=== PATIENT | male | born 1995 | race Caucasian/White ===

== ENCOUNTER 2018-03-04 18:51 | Emergency (ER) | payer BC, OTHER ==
--- NOTE | 2018-03-04 19:38 | ED ---
Lower Extremity - HPI Summary HPI Summary: Complains of pain to left lateral foot down near fifth digit status post landing wrong after jumping today. Denies loss of sensation, ankle pain, knee pain, loss of function of the toes. Medical history is none. - History of Current Complaint Chief Complaint: EDExtremityLower Stated Complaint: LT FT INJURY Time Seen by Provider: 03/04/18 19:10 Hx Obtained From: Patient Mechanism Of Injury: Twisted Onset of Pain: Immediate Severity Initially: Moderate Severity Currently: Moderate Pain Intensity: 7 Pain Scale Used: 0-10 Numeric Timing: Constant Location: Is Discrete @ Character Of Pain: Sharp, Throbbing Aggravating Factor(s): Standing, Weight Bearing - Allergies/Home Medications Allergies/Adverse Reactions: Allergies Allergy/AdvReac Type Severity Reaction Status Date / Time No Known Allergies Allergy Verified 03/04/18 18:57 Home Medications: Home Medications Dextroamphetamine/Amphetamine [Adderall Xr 20 mg Capsule] 20 mg PO DAILY [History Confirmed 03/04/18] PMH/Surg Hx/FS Hx/Imm Hx Endocrine/Hematology History: Denies: Hx Diabetes Cardiovascular History: Denies: Hx Hypertension, Hx Pacemaker/ICD History: Denies: Hx Renal Disease Sensory History: Denies: Hx Hearing Aid Psychiatric History: Denies: Hx Panic Disorder - Surgical History Surgery Procedure, Year, and Place: RIGHT WRIST REPAIR WITH PIN 07/2015 Infectious Disease History: No Infectious Disease History: Denies: Traveled Outside the [place] in Last 30 Days Review of Systems Constitutional: Negative Eyes: Negative ENT: Negative Cardiovascular: Negative Respiratory: Negative Gastrointestinal: Negative Genitourinary: Negative Musculoskeletal: Negative Skin: Negative Neurological: Negative Psychological: Normal All Other Systems Reviewed And Are Negative: Yes Physical Exam - Summary Physical Exam Summary: No ecchymosis, swelling, deformity, erythema, or extra warmth to left foot or ankle, left knee. PMS intact in left foot. Tenderness to palpation along the lateral edge of left foot in the vicinity of the fifth digit. No deformity noted to toes Triage Information Reviewed: Yes Vital Signs On Initial Exam: Initial Vitals Temp Pulse Resp BP Pulse Ox 99.5 F 93 16 128/83 98 03/04/18 18:53 03/04/18 18:53 03/04/18 18:53 03/04/18 18:53 03/04/18 18:53 Vital Signs Reviewed: Yes Appearance: Positive: Well-Appearing Skin: Positive: Warm Head/Face: Positive: Normal Head/Face Inspection Eyes: Positive: Normal Neck: Positive: Supple Respiratory/Lung Sounds: Positive: Clear to Auscultation Cardiovascular: Positive: Normal Abdomen Description: Positive: Nontender Musculoskeletal: Positive: Normal Neurological: Positive: Normal Psychiatric: Positive: Normal AVPU Assessment: Alert - [place] Coma Scale Best Eye Response: 4 - Spontaneous Best Motor Response: 6 - Obeys Commands Best Verbal Response: 5 - Oriented Coma Scale Total: 15 Procedures - Splinting Location: left ankle foot Hand-Made Type: orthoglass Splint: posterior walking Pre-Proc Neuro Vasc Exam: normal Post-Proc Neuro Vasc Exam: normal Diagnostics - Vital Signs Vital Signs Temp Pulse Resp BP Pulse Ox 03/04/18 18:53 99.5 F 93 16 128/83 98 - Laboratory Lab Statement: Any lab studies that have been ordered have been reviewed, and results considered in the medical decision making process. - Radiology foot Xray Interpretation: Positive (See Comments) - Incomplete nondisplaced fracture of the proximal metaphysis at the base of fifth metatarsal Radiology Interpretation Completed By: Radiologist Lower Extremity Course/Dx - Course Course Of Treatment: splint, crutches, f/up with ortho. 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 Use crutches to ambulate. Follow-up with orthopedics in 3 days. Turning to the ED for any new or worsening symptoms - Billing Disposition and Condition Condition: STABLE Disposition: HOME
--- NOTE | 2018-03-04 20:28 | RAD ---
Indication: Lateral LEFT foot pain post fall today. Comparison: No relevant prior exams available on the [facility] PACS for comparison. Technique: AP and lateral views LEFT foot. REPORT AND IMPRESSION: Subtle incomplete nondisplaced fracture at the proximal metaphysis of the base of the fifth metatarsal with overlying soft tissue swelling. No additional fracture evident. Normal articular alignment.
[2018-03-04] MEDS ORDERED: Acetaminophen TAB* 325 MG PO ONE (21:45)
[2018-03-04] MEDS ORDERED: Ibuprofen TAB* 600 MG PO ONE (21:45)
[2018-03-04 22:03] VITALS: BP 140/86
== END 2018-03-04 22:02 | disposition home or self-care (01) ==
LOC: ED 18:51
DX: S92.355A Nondisplaced fracture of fifth metatarsal bone, left foot, initial encounter for closed fracture (principal); X58.XXXA Exposure to other specified factors, initial encounter; Y93.39 Activity, other involving climbing, rappelling and jumping off; Y92.9 Unspecified place or not applicable
CPT/HCPCS: 99282